=== PATIENT | male | born 1930 | race Caucasian/White ===

== ENCOUNTER 2018-03-02 16:36 | Emergency (ER) | payer MEDICARE, OTHER ==
[~2018-03-02] VITALS: Ht 167.6 cm; Wt 81.6 kg
[~2018-03-02 16:36] MED LIST: ATEN-60; FELO2.5T; LISI-275; OMEP20TA; SIMV-13
[2018-03-02] MEDS ORDERED: ASPirin 81 mg TAB PO ONE (17:00)
[2018-03-02 17:17] LABS: Basophils # (auto) 0.1 uL; Basophils % (auto) 0.8 % (0.0-2.0); Eosinophils # (auto) 0.3 uL; Eosinophils % (auto) 3.1 % (0.0-7.0); Hematocrit 33.7 % (41.0-53.0); Hemoglobin 11.3 g/dL (13.5-17.5); Lymphocytes # (auto) 1.2 uL; Lymphocytes % (auto) 14.3 % (10.0-50.0); Mean Corpuscular Hemoglobin 32.9 pg (28.0-32.0); Mean Corpuscular Hgb Conc. 33.7 g/dL (32.0-36.0); Mean Corpuscular Volume 97.7 fL (80.0-100.0); Monocytes # (auto) 0.7 uL; Monocytes % (auto) 8.2 % (0.0-12.0); Neutrophils # (auto) 6.1 uL; Neutrophils % (auto) 73.6 % (37.0-80.0); Nucleated Red Blood Cells % 0.1 %; Platelet Count (auto) 163 10^3/uL (140-450); Red Blood Cells 3.45 10^6/uL (4.5-5.90); Red Cell Distribution Width 17.1 % (11.8-14.3); White Blood Cell 8.2 10^3/uL (4.4-10.8)
[2018-03-02 17:37] LABS: BUN/Creatinine Ratio 15.5; Calcium 7.3 mg/dL (8.5-10.1); Magnesium 1.6 mg/dL (1.6-2.6)
[2018-03-02 17:42] LABS: Bilirubin, Total 0.4 mg/dL (0.2-1.0); Total Protein 6.2 g/dL (6.4-8.2)
[2018-03-02 23:24] VITALS: BP 156/95
[2018-03-03] MEDS ORDERED: NITROGLYCERIN 0.4 MG SL TAB SL PRN (01:00)
[2018-03-03] MEDS ORDERED: HYDROcodone-ACET 5/325MG TAB PO PRN (01:00)
[2018-03-03] MEDS ORDERED: MORPHINE SULFATE 4 MG/ML SYR/VIAL IV PRN ×2 (01:00)
[2018-03-03] MEDS ORDERED: ONDANSETRON HCL 4 MG/2 ML VIAL IV PRN (01:00)
[2018-03-03] MEDS ORDERED: ACETAMINOPHEN 500 MG TAB PO PRN (01:00)
== END 2018-03-03 00:31 | disposition home or self-care (01) ==
LOC: EDBD 16:36 → ER 16:40
DX: I24.9 Acute ischemic heart disease, unspecified (principal); I25.10 Atherosclerotic heart disease of native coronary artery without angina pectoris; K21.9 Gastro-esophageal reflux disease without esophagitis; E78.00 Pure hypercholesterolemia, unspecified; I10 Essential (primary) hypertension; Z90.49 Acquired absence of other specified parts of digestive tract; Z79.899 Other long term (current) drug therapy
CPT/HCPCS: 36415; 71045; 80053; 83735; 84484; 85025; 93005